=== PATIENT | female | born 1995 | race Two or more races ===

== ENCOUNTER → 2024-02-08 | Outpatient (CLI) | payer OTHER ==
[2024-02-08 15:27] LABS: HEMOGLOBIN 13.3 g/dl (12.0-15.5); MEAN CORPUSCULAR HEMOGLOBIN 31.1 pg (27.0-33.0); MEAN CORPUSCULAR HGB CONC 33.3 g/dl (32.0-36.5); MEAN CORPUSCULAR VOLUME 93.5 fl (80.0-96.0); PLATELET COUNT, AUTOMATED 235 10^3/uL (150-450); RED BLOOD COUNT 4.28 10^6/uL (4.00-5.40); WHITE BLOOD COUNT 6.7 10^3/uL (4.0-10.0)
[2024-02-08 16:16] LABS: HIV 1&2 SCREEN NEGATIVE (NEGATIVE)
[2024-02-08 16:24] LABS: HEPATITIS C VIRUS ABY INDEX < 0.02 INDEX (<0.8)
[2024-02-08 16:53] LABS: GC DNA AMPLIFICATION NEGATIVE (NEGATIVE)
== END ==
LOC: M PLALAB 10:03
PROVIDERS: ATTEND Obstetrics & Gynecology
DX: Z34.91 Encounter for supervision of normal pregnancy, unspecified, first trimester (principal); Z3A.08 8 weeks gestation of pregnancy

== ENCOUNTER → 2024-03-04 | Outpatient (CLI) | payer OTHER | LOC: M PLALAB 13:05 | PROVIDERS: ATTEND Advanced Practice Midwife | DX: O99.341 Other mental disorders complicating pregnancy, first trimester (principal); Z3A.00 Weeks of gestation of pregnancy not specified ==

== ENCOUNTER → 2024-05-06 | Outpatient (CLI) | payer OTHER | LOC: M WHC 07:54 | PROVIDERS: ATTEND Advanced Practice Midwife | DX: O99.341 Other mental disorders complicating pregnancy, first trimester (principal); Z3A.21 21 weeks gestation of pregnancy ==

== ENCOUNTER → 2024-06-03 | Outpatient (REF) | payer OTHER ==
[2024-06-03 19:20] LABS: HEMATOCRIT 34.2 % (36.0-47.0); HEMOGLOBIN 11.4 g/dl (12.0-15.5); MEAN CORPUSCULAR HEMOGLOBIN 30.8 pg (27.0-33.0); MEAN CORPUSCULAR HGB CONC 33.3 g/dl (32.0-36.5); MEAN CORPUSCULAR VOLUME 92.4 fl (80.0-96.0); PLATELET COUNT, AUTOMATED 219 10^3/uL (150-450); WHITE BLOOD COUNT 8.3 10^3/uL (4.0-10.0)
[2024-06-03 20:03] LABS: HIV 1&2 SCREEN NEGATIVE (NEGATIVE)
[2024-06-03 20:11] LABS: HEPATITIS C VIRUS ABY INDEX < 0.02 INDEX (<0.8)
[2024-06-03 22:01] LABS: GC DNA AMPLIFICATION NEGATIVE (NEGATIVE)
== END ==
LOC: M LABDRAWP 17:14
PROVIDERS: ATTEND Obstetrics & Gynecology
DX: O26.22 Pregnancy care for patient with recurrent pregnancy loss, second trimester (principal)

== ENCOUNTER → 2024-06-06 | Outpatient (CLI) | payer OTHER | LOC: M PLALAB 13:28 | PROVIDERS: ATTEND Obstetrics & Gynecology | DX: O26.22 Pregnancy care for patient with recurrent pregnancy loss, second trimester (principal); Z3A.00 Weeks of gestation of pregnancy not specified ==

== ENCOUNTER → 2024-06-28 | Outpatient (CLI) | payer OTHER | LOC: M WHC 06:48 | PROVIDERS: ATTEND Obstetrics & Gynecology | DX: O26.23 Pregnancy care for patient with recurrent pregnancy loss, third trimester (principal); Z3A.29 29 weeks gestation of pregnancy ==

== ENCOUNTER → 2024-08-17 | Outpatient (REF) | payer OTHER | LOC: M SFHCWAGY 15:23 | PROVIDERS: ATTEND Obstetrics & Gynecology | DX: Z34.83 Encounter for supervision of other normal pregnancy, third trimester (principal) ==

== ENCOUNTER 2024-09-03 01:40 | Inpatient (IN) | payer OTHER ==
[2024-09-03] VITALS (38 sets, daily range): BP systolic 95–156; BP diastolic 51–84
[~2024-09-03] VITALS: Ht 167.6 cm; Wt 144.0 kg
[2024-09-03] MEDS ORDERED: HOME MED LIST COMPLETE! XX SCH (02:20)
[2024-09-03] MEDS ORDERED: BENA25CA4 PO (02:20)
[2024-09-03] MEDS ORDERED: PRENTAB9 PO (02:20)
[2024-09-03] MEDS ORDERED: LR 1,000 ML IV SCH (03:35)
[2024-09-03] MEDS ORDERED: LIDOCAINE 1% MDV 20ML VIAL INFIL PRN (03:35)
[2024-09-03] MEDS ORDERED: METHYLERGONOVINE MALEATE 0.2MG/ML 1ML VIAL IM PRN (03:35)
[2024-09-03] MEDS ORDERED: TRANEXAMIC ACID INJection 1,000 MG in NS 100 ML IV PRN (03:35)
[2024-09-03] MEDS ORDERED: CARBOPROST TROMETHAMINE 250 MCG/ML AMP IM PRN (03:35)
[2024-09-03 04:09] LABS: HEMATOCRIT 36.7 % (36.0-47.0); HEMOGLOBIN 12.4 g/dl (12.0-15.5); MEAN CORPUSCULAR HEMOGLOBIN 28.8 pg (27.0-33.0); MEAN CORPUSCULAR HGB CONC 33.8 g/dl (32.0-36.5); MEAN CORPUSCULAR VOLUME 85.2 fl (80.0-96.0); PLATELET COUNT, AUTOMATED 290 10^3/uL (150-450); RED BLOOD COUNT 4.31 10^6/uL (4.00-5.40); WHITE BLOOD COUNT 12.4 10^3/uL (4.0-10.0)
[2024-09-03 05:10] LABS: HEPATITIS C VIRUS ABY INDEX < 0.02 INDEX (<0.8)
[2024-09-03] MEDS ORDERED: PROMETHAZINE 25MG/ML 1ML VIAL IM ONE (08:05)
[2024-09-03] MEDS: BUTORPHANOL 2 MG/ML 1ML VIAL IV ONE (08:27)
[2024-09-03] MEDS: PROMETHAZINE 25MG/ML 1ML VIAL IV ONE (08:32)
[2024-09-03] MEDS ORDERED: diphenhydrAMINE 50MG/ML VIAL IV PRN (13:50)
[2024-09-03] MEDS ORDERED: EPIDURAL/PCA KEYS XX PRN (13:50)
[2024-09-03] MEDS ORDERED: LR 500 ML IV PRN (13:50)
[2024-09-03] MEDS ORDERED: ePHEDrine SULFATE 25 MG/5 ML(5MG/ML) SYRINGE IVP PRN (13:50)
[2024-09-03] MEDS ORDERED: NALOXONE INJ 0.4MG/1ML VIAL IV PRN (13:50)
[2024-09-03] MEDS: FENTANYL/ROPIVACAINE/NACL BAG 100 ML EPIDURAL SCH (14:12)
[2024-09-03] MEDS: LACTATED RINGER'S 1000 ML IV STA (14:13)
[2024-09-03] MEDS: ONDANSETRON 4MG 2ML VIAL IV PRN (14:47)
[2024-09-03] MEDS: OXYTOCIN DRIP 30 UNITS in IV 1 EA IV SCH ×2 (18:08→22:40)
[2024-09-03] MEDS: OXYTOCIN DRIP 30 UNITS in IV 1 EA IV PRN (22:27)
[2024-09-03] MEDS ORDERED: IBUPROFEN 600MG TAB PO PRN (22:40)
[2024-09-03] MEDS ORDERED: ACETAMINOPHEN 325 MG TAB PO PRN (22:40)
[2024-09-03] MEDS ORDERED: RHOGAM 300MCG (1500IU) INJ IM SCH (22:40)
[2024-09-03] MEDS: LR 1,000 ML IV SCH (22:40)
[2024-09-03] MEDS ORDERED: ANUSOL HC CREAM 30GM TOP PRN (22:40)
[2024-09-03] MEDS ORDERED: CALCIUM CARBONATE 500 MG CHEW U/D PO PRN (22:40)
[2024-09-03] MEDS ORDERED: DOCUSATE SODIUM 100MG CAPSULE PO PRN (22:40)
[2024-09-03 22:41] LABS: CORD GAS HCO3 A 19.2 MMOL/L; CORD GAS O2 SAT A 70.3 %; CORD GAS PCO2 A 67.1 mmHg; CORD GAS PH A 7.074 UNITS; CORD GAS PO2 A 41.8 mmHg; CORD GAS SBC A 14.7 MMOL/L; CORD GAS TCO2 A 21.2 MMOL/L
[2024-09-03 22:44] LABS: CORD GAS HCO3 V 21.7 MMOL/L; CORD GAS O2 SAT V 90.3 %; CORD GAS PCO2 V 38.1 mmHg; CORD GAS PH V 7.374 UNITS; CORD GAS PO2 V 47.7 mmHg; CORD GAS SBC V 21.8 MMOL/L; CORD GAS TCO2 V 22.9 MMOL/L
[2024-09-04 00:01] VITALS: BP 109/58
[2024-09-04 00:16] VITALS: BP 100/54
[2024-09-04 00:32] VITALS: BP 124/81
[2024-09-04] MEDS: ACETAMINOPHEN 500 MG TAB PO PRN (00:37)
[2024-09-04 01:00] VITALS: BP 119/60; O2SAT 100
[2024-09-04] MEDS: IBUPROFEN 800 MG TAB PO PRN (01:48)
[2024-09-04 06:00] VITALS: BP 99/56; O2SAT 98
[2024-09-04] MEDS: PRENATAL VITAMINS CHEWABLE TABLET PO SCH (09:10)
[2024-09-04 17:42] VITALS: BP 127/79; O2SAT 100
[2024-09-05 06:00] VITALS: BP 134/81; O2SAT 100
[2024-09-05] MEDS ORDERED: MEASLES,MUMPS,RUBELLA VACCINE INJ (MMR-II) SC.IMMUN ONE (09:00)
[2024-09-05] MEDS: DIBUCAINE 1% OINTMENT 30GM TOP PRN (09:42)
[2024-09-05] MEDS ORDERED: ACET-683 PO (11:38)
[2024-09-05] MEDS ORDERED: IBUP80TA PO (11:38)
== END 2024-09-05 14:05 | disposition home or self-care (01) | DRG 806 ==
LOC: M LDO 01:40 → M LDI 03:21 → M OBS 09-04 00:57
PROVIDERS: ADMIT Obstetrics & Gynecology; ATTEND Obstetrics & Gynecology
PROC: 10E0XZZ Delivery of Products of Conception, External Approach (ICD-10-PCS; principal; 2024-09-03)
PROC: 0KQM0ZZ Repair Perineum Muscle, Open Approach (ICD-10-PCS; 2024-09-03)
DX: O70.1 Second degree perineal laceration during delivery (principal); Z37.0 Single live birth; Z68.43 Body mass index [BMI] 50.0-59.9, adult; Z3A.38 38 weeks gestation of pregnancy; Z88.0 Allergy status to penicillin; E66.9 Obesity, unspecified; O99.214 Obesity complicating childbirth; F32.9 Major depressive disorder, single episode, unspecified; F41.9 Anxiety disorder, unspecified; O99.344 Other mental disorders complicating childbirth